=== PATIENT | male | born 1940 | race Caucasian/White ===

== ENCOUNTER 2019-05-06 16:24 | Observation (INO) ==
[2019-05-06] MEDS ORDERED: 0.9 % Sodium Chloride 1,000 ML ONE (18:53)
--- NOTE | 2019-05-06 19:03 | Urology History & Physical ---
Date of Encounter: 05/06/19 Time of Encounter: 19:01 Assessment and Plan (1) Ureteral stone with hydronephrosis Current Visit: Yes Status: Acute The patient has a 3 mm distal left ureteral calculi with hydronephrosis. He has been to the outside emergency room twice for intractable pain. He was transferred for surgical intervention. Patient is no longer interested in medically expulsive therapy. He has been scheduled for ureteroscopic stone extraction, retrograde pyelogram, ureteral stent placement tomorrow. We discussed the risks of the procedure which includes injury to his urinary tract, stricture, reaction to the contrast, stent discomfort. (2) Acute renal insufficiency Current Visit: Yes Status: Acute Likely from the obstructing stone. We will hydrate the patient. Recheck renal function in the morning History of Present Illness Chief complaint: left flank pain HPI: Mr. Lomeli is a 78 year old male with no significant medical history was transferred from [facility] secondary to a 3 mm distal ureteral stone. He went to [facility] emergency room twice for intractable pain. The second visit he was found to have acute renal insufficiency and elevated white cell count. He had subjective fevers. Patient states he feels well now. He has had nausea vomiting. No nausea currently. He denies chest pain or shortness of breath. No dysuria. No gross hematuria. He does not believe he passed the stone Review of Systems - Constitutional fever(s), no chills - EENT Nose, mouth and throat: no dizziness - Cardiovascular dyspnea (Not current), no chest pain - Respiratory no cough - Gastrointestinal abdominal pain, nausea - Genitourinary flank pain - Musculoskeletal back pain - Integumentary no erythema - Neurological no confusion - Psychiatric no anxiety - Hematologic/Lymphatic no easy bleeding - Allergic/Immunologic no throat swelling Exam - General physical appearance Present: no distress, no pain - Eyes Present: PERRL - ENT Present: normal nares, no congestion - Neck Present: no masses, no lymphadenopathy - Respiratory Present: normal respiratory effort - Cardiovascular Cardiovascular exam IM: RRR - Abdomen Abdomen: Present: soft. Absent: suprapubic tenderness - Integumentary Present: no rash, no growths, no abnormal pigmentation - Neurologic Present: normal coordination - Musculoskeletal Present: normal gait - Additional Findings No significant CVA tenderness at this time Urology Results - Labs All other labs normal.
[2019-05-06] MEDS ORDERED: Hyoscyamine SL 0.125 MG TAB.SUBL SL PRN (19:05)
[2019-05-06] MEDS ORDERED: *HR* Promethazine 25 MG/ML VIAL IVP PRN (19:05)
[2019-05-06] MEDS ORDERED: *HR* FentaNYL (PF) 100 MCG/2 ML VIAL IVP PRN (19:05)
[2019-05-06] MEDS ORDERED: Ondansetron 4 MG/2 ML VIAL IVP PRN (19:05)
[2019-05-06] MEDS ORDERED: Albuterol 2.5 MG/3 ML NEBULIZER IH PRN (19:05)
[2019-05-06] MEDS ORDERED: *HR* HYDROcodone/Acet 5/325 mg TABLET PO PRN (19:05)
[2019-05-06] MEDS ORDERED: Acetaminophen IV 1,000 MG/100 ML INFUS..BTL IVPB PRN (19:05)
[2019-05-06] MEDS ORDERED: Naloxone 0.4 MG/ML INJ IVP PRN (19:05)
[2019-05-06] MEDS ORDERED: Promethazine 25 MG in 0.9 % Sodium Chloride 50 ML IVPB PRN (19:14)
[2019-05-06] MEDS ORDERED: 0.9 % Sodium Chloride 1,000 ML IVC SCH (19:15)
[2019-05-07 02:52] LABS: Basophils % 0.3 %; Eosinophils % 0.3 %; Hematocrit 42.9 % (37.5-50.1); Hemoglobin 14.7 g/dL (12.9-16.9); Immature Granulocytes % 0.3 % (0-4); Lymphocytes # 2.1 K/mcL (0.6-4.6); Lymphocytes % 16.2 %; Mean Corpuscular HGB Conc 34.3 g/dL (31.6-35.5); Mean Corpuscular Hemoglobin 32.4 pg (28.0-33.3); Mean Corpuscular Volume 94.5 fL (83.0-100.0); Mean Platelet Volume 10.7 fL (9.4-12.4); Monocytes % 7.5 %; Neutrophils # 9.7 K/mcL (1.6-8.9); Platelet Count 292 K/mcL (140-400); Red Blood Count 4.54 M/mcL (4.19-5.50); Red Cell Distribution Width 12.3 % (11.5-14.5); Segmented Neutrophils % 75.4 %; White Blood Count 12.9 K/mcL (4.3-11.1)
[2019-05-07 03:09] LABS: Calcium 8.8 mg/dL (8.6-10.3); Potassium 3.8 mEq/L (3.5-5.1)
[2019-05-07] MEDS ORDERED: cefTRIAXone 1,000 MG in Water for inj. (sterile) 10 ML IVP SCH (07:00)
--- NOTE | 2019-05-07 08:10 | Urology Progress Note ---
Date of Encounter: 05/07/19 Time of Encounter: 08:09 - Assessment and Plan (1) Ureteral stone with hydronephrosis Current Visit: Yes Status: Acute Assessment and plan: proceed with stone extraction this AM. (2) Acute renal insufficiency Current Visit: Yes Status: Acute Progress Note Narrative: pt still has some pain this AM. has not passed the stone Objective Initial Vital Signs Temp Pulse Resp BP Pulse Ox 98.0 F 86 16 153/78 94 05/06/19 19:26 05/06/19 19:26 05/06/19 19:26 05/06/19 19:05/06/19 19:26 - General physical appearance Present: no distress - Abdomen Present: soft - Labs 05/07/19 02:18 05/07/19 02:18 Diabetes panel 05/07/19 Range/Units 02:18 Sodium 136 (136-145) mEq/L Potassium 3.8 (3.5-5.1) mEq/L Chloride 105 (98-107) mEq/L Carbon Dioxide 21 L (23-29) mEq/L BUN 26 H (8-23) mg/dL Creatinine 1.52 H (0.70-1.30) mg/dL Glucose 142 H (70-105) mg/dL Calcium 8.8 (8.6-10.3) mg/dL Calcium panel 05/07/19 Range/Units 02:18 Calcium 8.8 (8.6-10.3) mg/dL Pituitary panel 05/07/19 Range/Units 02:18 Sodium 136 (136-145) mEq/L Potassium 3.8 (3.5-5.1) mEq/L Chloride 105 (98-107) mEq/L Carbon Dioxide 21 L (23-29) mEq/L BUN 26 H (8-23) mg/dL Creatinine 1.52 H (0.70-1.30) mg/dL Glucose 142 H (70-105) mg/dL Calcium 8.8 (8.6-10.3) mg/dL Adrenal panel 05/07/19 Range/Units 02:18 Sodium 136 (136-145) mEq/L Potassium 3.8 (3.5-5.1) mEq/L Chloride 105 (98-107) mEq/L Carbon Dioxide 21 L (23-29) mEq/L BUN 26 H (8-23) mg/dL Creatinine 1.52 H (0.70-1.30) mg/dL Glucose 142 H (70-105) mg/dL Calcium 8.8 (8.6-10.3) mg/dL Consult Discharge Plan - Plan [facility] Care Provider[facility] -
--- NOTE | 2019-05-07 08:26 | Anesthesia Evaluation PreOp ---
Date of Encounter: 05/07/19 Time of Encounter: 08:24 - Past History Planned Operation: Left Ureteroscopic Stone Extraction Cardiac History: Denies any Significant Hx Pulmonary History: Former smoker (quit 15 years ago), Asthma VISITING NURSE History: Denies Any Significant HX Other Medical History: Renal (kidney stones) Anesthesia History: No Prior Anesthetic Complications, Past Anesthesia Alcohol Use: none Drug use: none Medications and Allergies Allergy/AdvReac Type Severity Reaction Status Date / Time No Known Allergies Allergy Verified 05/06/19 19:01 - Meds/Allergy Pre-op Review Medications Reviewed: Yes Allergies Reviewed: Yes Beta Blockers on Current Med List: No Anesthesia Results - Labs 05/07/19 02:18 05/07/19 02:18 - Imaging EKG: report reviewed (05/07/2019 sinus tachycardia) Anesthesia Exam Vital Signs/O2 Sat/Glucose, Most Recent Temp Pulse Resp BP Pulse Ox 98.5 F 96 17 161/82 94 05/07/19 07:14 05/07/19 07:14 05/07/19 07:14 05/07/19 07:14 05/07/19 07:14 Blood Glucose* 166 Height: 5'11''/1.8m Weight: 157 lbs/71.4 kg NPO (# of Hours): 8 Pain Scale: 3 (left flank) Pain Scale Used: Numeric (1 - 10) - HEENT Pupil (Motor): EOMI Mallampati: II Teeth: Edentulous Denture Type: Upper: Complete, Lower: Complete Oral Opening: Greater than 3 - VISITING NURSE LOC: Oriented VISITING NURSE Motor: Normal RUE, Normal LUE, Normal RLE, Normal LLE, Normal Face VISITING NURSE Sensory: Normal: RUE, LUE, RLE, LLE, Face - Cardiac Rhythm: Regular Murmur: None - Pulmonary Breath Sounds: bilateral Clear Respiratory Effort: Symmetrical Anesthesia Assess/Plan ASA Score: 2 Level of consciousness: Cooperative, Oriented, Tranquil Anesthetic Plan: General Monitoring Plan: Standard Monitors Recovery Plan: PACU
--- NOTE | 2019-05-07 09:16 | Operative Note ---
Date of procedure: 05/07/19 Pre-op diagnosis: Left distal ureteral stone Post-op diagnosis: same (incidental bladder stone noted. Approximately 1 cm) Procedure: Left ureteroscopic stone extraction Left ureteral stent placement Removal of 1 cm bladder stone Anesthesia: GETA Surgeon: Tomi Hill Was there an head start assistant teacher present: No Estimated blood loss (cc): 0 Specimen: Stone Condition: stable Disposition: PACU Procedure in Detail: PROCEDURE IN DETAIL: Patient was taken back to the operating room, positioned supine on the operating table. Anesthesia was applied without complication. They were moved into dorsal lithotomy. Careful attention was maintained to cushion all pressure points for patient's safety. They were prepped and draped in sterile fashion. Time-out was performed with the proper patient and procedure. A 21-Taiwanese rigid cystoscope was inserted into the bladder without difficulty. Systematic examination of bladder revealed mild trabeculations and a few cellules. I noted a bladder stone located within one of the cellules on the posterior right bladder wall. I was able to basket extract the stone with a 1.9 tip was basket. The stone was quite oblong and I was able to extract the stone lengthwise minimizing trauma to the urethra. The left ureteral orifice was cannulated using a 5-Taiwanese ureteral Catheter and I had return of significant debris filled stagnant urine. At that point, a zip wire was placed through the 5-Taiwanese and confirmed in the renal pelvis with fluoroscopy. An 8-10 dilator was then placed over the zip wire to passively dilate the ureteral orifice. A semi-rigid ureteroscope was carefully inserted into the bladder and guided into the ureteral oriface. The stone was encountered and I was able to basket extract the stone without performing laser lithotripsy A 4.8 x 26 ureteral stent was placed over the zip wire under fluoroscopy without complication. The bladder was drained and the dangle string was secured to the dorsal aspect of the penis.
--- NOTE | 2019-05-07 09:18 | Discharge Summary ---
Date of Encounter: 05/07/19 Time of Encounter: 09:18 - Discharge Diagnosis (1) Ureteral stone with hydronephrosis Priority: Primary Status: Resolved Comments: Status post stone extraction (2) Acute renal insufficiency Priority: Secondary Status: Acute - Hospital Course Hospital course: Mr. Lomeli is a 78 year old male patient status post ureteroscopic stone extraction and stent placement. Plan for discharge when symptoms are controlled. Will recheck renal function as an outpatient. Instructions provided for stent removal - Time Spent with Patient Total time spent providing and/or coordinating discharge services: Labs on day of discharge: Labs from last 24 hours 05/07/19 05/07/19 02:18 02:18 WBC 12.9 H RBC 4.54 Hgb 14.7 Hct 42.9 MCV 94.5 MCH 32.4 MCHC 34.3 RDW 12.3 Plt Count 292 MPV 10.7 Immature Gran % 0.3 Seg Neutrophils % 75.4 Lymphocytes % 16.2 Monocytes % 7.5 Eosinophils % 0.3 Basophils % 0.3 Neutrophils # 9.7 H Lymphocytes # 2.1 Monocytes # 1.0 Eosinophils # 0.0 Basophils # 0.0 Sodium 136 Potassium 3.8 Chloride 105 Carbon Dioxide 21 L BUN 26 H Creatinine 1.52 H Est GFR ( Amer) 54 L Est GFR (Non-Af Amer) 45 L BUN/Creatinine Ratio 17 Glucose 142 H Calculated Osmolality 289 Calcium 8.8 - Discharge Medications Prescriptions: New Sulfamethoxazole/Trimeth DS [Bactrim DS] 1 each PO BID #6 tablet Hyoscyamine SL [Levsin Sl] 0.125 mg SL Q4H PRN 7 Days #30 tab.subl PRN Reason: bladder spasms HYDROcodone/Acet 5/325 mg [[place] 5-325 mg] 1 tab PO Q4HR PRN 5 Days #15 tablet PRN Reason: Mild To Moderate Pain Home Medications: HYDROcodone/Acet 5/325 mg [[place] 5-325 mg] 1 tab PO Q4HR PRN 5 Days #15 tablet 05/07/19 [Rx] Hyoscyamine SL [Levsin Sl] 0.125 mg SL Q4H PRN 7 Days #30 tab.subl 05/07/19 [Rx] Sulfamethoxazole/Trimeth DS [Bactrim DS] 1 each PO BID #6 tablet 05/07/19 [Rx] Allergies/Adverse Reactions: Allergy/AdvReac Type Severity Reaction Status Date / Time No Known Allergies Allergy Verified 05/06/19 19:01 Date of admission: 05/06/19 18:26 [facility] care [facility] Discharging clinician: Tomi Hill Anticipated date of discharge: 05/07/19 Exam Initial Vital Signs Temp Pulse Resp BP Pulse Ox 98.0 F 86 16 153/78 94 05/06/19 19:26 05/06/19 19:26 05/06/19 19:26 05/06/19 19:26 05/06/19 19:26 - General physical appearance Present: well developed, no distress - Patient Status Disposition: Home, Self-Care Condition: Good Functional capacity at discharge: independent ambulation Overall status at discharge: patient is progressing back to baseline - Discharge Instructions Follow Up With: [facility],PCP [Primary Care Provider] - Tomi Hill MD [Partnered Physician] - (Patient is able to remove the stent at home on by pulling on the string until the entire stent is removed. Okay to come to the urology office Wednesday for removal if he is not comfortable removing at home. Otherwise my office will call him with follow-up appointment) Additional Instructions: No specific activity restrictions. Expect stent discomfort including urgency, frequency, burning on urination, light blood in the urine, flank pain during urination Okay to use [id number] AZO No NSAIDs Increase water intake Use stool softeners if prone to constipation - Diet and Activity Activity: increase activity as tolerated Diet: advance to your usual diet
[2019-05-07] MEDS ORDERED: *HR* Propofol 200 MG/20 ML VIAL IVP ONE (09:46)
[2019-05-07] MEDS ORDERED: Lidocaine -MPF 2% 2 ML VIAL ONE (09:48)
[2019-05-07] MEDS ORDERED: Dexamethasone 4 MG/ML VIAL ONE (09:48)
[2019-05-07] MEDS ORDERED: Ondansetron 4 MG/2 ML VIAL ONE (09:48)
[2019-05-07] MEDS ORDERED: EPHEDrine 50 MG/ML VIAL ONE (09:51)
[2019-05-07] MEDS ORDERED: *HR* FentaNYL (PF) 100 MCG/2 ML VIAL ONE (09:51)
[2019-05-07] MEDS ORDERED: Isovue-300 50 ML VIAL ONE (09:52)
[2019-05-07] MEDS ORDERED: Morphine Sulfate 2 MG/ML SYRINGE IVP PRN (10:47)
--- NOTE | 2019-05-07 11:24 | Anesthesia Evaluation Post Op ---
Date of Encounter: 05/07/19 Time of Encounter: 11:24 - Vital Signs Vital Signs: Vital Signs/O2 Sat, Most Current Temp Pulse Resp BP Pulse Ox 98.7 F 80 12 115/79 96 05/07/19 11:21 05/07/19 11:21 05/07/19 11:21 05/07/19 11:21 05/07/19 11:21 - Lungs Lungs: Clear Ascult./Percussion - Airway Airway: Non-obstructed - Cardiovascular Regular Rate - Mental Status Mental Status: Alert & Oriented, Answers Appropriately - Pain Pain Scale: 0 Pain Scale used: Numeric (1 - 10) - Nausea Vomiting Nausea Vomiting: Not Present - Hydration Hydration: Ice chips, Has not voided - Discharge PostOp Status: Transfer Patient to floor
[2019-05-07] MEDS ORDERED: *HR* FentaNYL (PF) 100 MCG/2 ML VIAL IVP PRN (11:53)
[2019-05-07] MEDS ORDERED: *HR* HYDROcodone/Acet 5/325 mg TABLET PO PRN (11:53)
[2019-05-07] MEDS ORDERED: Ondansetron 4 MG/2 ML VIAL IVP PRN (11:53)
[2019-05-07] MEDS ORDERED: Acetaminophen IV 1,000 MG/100 ML INFUS..BTL IVPB PRN (11:53)
[2019-05-07] MEDS ORDERED: 0.9 % Sodium Chloride 1,000 ML IVC SCH (11:53)
[2019-05-07] MEDS ORDERED: Albuterol 2.5 MG/3 ML NEBULIZER IH PRN (11:53)
[2019-05-07] MEDS ORDERED: Naloxone 0.4 MG/ML INJ IVP PRN (11:53)
[2019-05-07] MEDS ORDERED: Hyoscyamine SL 0.125 MG TAB.SUBL SL PRN (11:53)
[2019-05-07] MEDS ORDERED: Promethazine 25 MG in 0.9 % Sodium Chloride 50 ML IVPB PRN (11:53)
[2019-05-07 15:26] VITALS: BP 148/77
[2019-05-08] MEDS ORDERED: cefTRIAXone 1,000 MG in Water for inj. (sterile) 10 ML IVP SCH (09:00)
--- NOTE | 2019-05-09 16:08 | Electrocardiograph Report ---
[address] [address] Test Date: 2019-05-07 Pat Name: Boris Lomeli Department: 115 Room: 3A Gender: M Cps Team Lead: : 1940 Requested By: Tomi Hill Order Number: [id number] Reading MD: Gio Kumar Measurements Intervals [place] Rate: 100 P: 75 WV: 165 QRS: 54 QRSD: 102 T: 62 QT: 366 QTc: 423 Interpretive Statements SINUS TACHYCARDIA Electronically Signed On 05-09-2019 16:06:51 EDT by Gio Kumar
[2019-05-12 04:44] LABS: Calculi Mass 240 mg; Calculi Mass 7 mg
== END 2019-05-07 16:00 | disposition home or self-care (01) ==
LOC: 3ANU
PROVIDERS: ADMIT Urology; ATTEND Urology

== ENCOUNTER 2019-05-12 14:02 | Observation (INO) ==
[2019-05-12] MEDS ORDERED: Naloxone 0.4 MG/ML INJ IVP PRN (16:01)
[2019-05-12] MEDS ORDERED: Ondansetron 4 MG/2 ML VIAL IVP PRN (16:01)
--- NOTE | 2019-05-12 16:01 | Internal Med History&Physical ---
Date of Encounter: 05/12/19 Time of Encounter: 16:01 Internal Medicine - H&P: HPI History of present illness: Mr. Lomeli is a 78 year old male presents as a transfer from [facility] ED for left flank pain. He was recently discharged from [facility] after having an obstructive UVJ stone with ipsilateral hydronephrosis. Patient had a stent placed and several stones were retrieved. The next day, he started havin left flank pain again. He removed his uretheral stent yesterday as instructed. He was pr escribed Bactrim DS and hydrocodone. He had hematuria that has been gradually improving. Creatinine was 1.72, and baseline is reported to be 1.1. WBC elevated at 20k. Urinalysis showed trace ketones, large blood, trace leukocyte esterase. BP at [facility] was 164/81 with HR 92 bpm, and Tmax 99.[address] abdomen pelvis showed mild hydroureteronephrosis. Prior stones in recent images were no longer identified. It also showed prostatomegaly with calcification. A right adrenal nodule was noted that should be evaluated with an MRI. He was given a dose of 1 g Rocephin IV, 1 L normal saline and acetaminophen. Past Med Surg Social Fam HX - Past Medical History Psychiatric history: no psych history - Past Surgical History Additional surgical history: left wrist fracture with edward. left ankle fracture - Social History Smoking Status: Former smoker Smokeless Tobacco Status: No Alcohol use: none Drug use: none - Family History Father Living Status: Hx Family Cardiac Disorders: Yes Internal Medicine - H&P: Meds HYDROcodone/Acet 5/325 mg [[place] 5-325 mg] 1 tab PO Q4HR PRN 5 Days #15 tablet 05/07/19 [Rx] Hyoscyamine SL [Levsin Sl] 0.125 mg SL Q4H PRN 7 Days #30 tab.subl 05/07/19 [Rx] Sulfamethoxazole/Trimeth DS [Bactrim DS] 1 each PO BID #6 tablet 05/07/19 [Rx] Allergy/AdvReac Type Severity Reaction Status Date / Time No Known Allergies Allergy Verified 05/06/19 19:01 All Systems PM: A 10-system review of systems was performed and is negative for pertinent findings except as documented above in the HPI. - Constitutional Constitutional: fever(s), no chills, no night sweats - EENT Eyes: no change in vision, no discharge, no pain, no photophobia Ears: no ear discharge, no ear pain, no tinnitus Nose, mouth and throat: no dysphagia, no nasal discharge, no neck pain, no sore throat - Cardiovascular Cardiovascular ROS IM: no chest pain, no diaphoresis, no dyspnea, no lightheadedness, no palpitations, no syncope - Respiratory Respiratory: no cough, no dyspnea, no wheezing, no excessive phlegm production - Gastrointestinal Gastrointestinal: no abdominal pain, no diarrhea, no hematemesis, no hematochezia, no melena, no nausea, no vomiting - Genitourinary Genitourinary ROS male: flank pain - Musculoskeletal Musculoskeletal ROS IM: no numbness, no tingling - Integumentary Integumentary IM: no rash, no unusual bruising - Neurological Neurological ROS: no confusion, no convulsions, no focal weakness, no numbness, no tingling, no tremor(s) - Hematologic/Lymphatic Hematologic/Lymphatic: no easy bruising - Constitutional General appearance: Present: A&O X 3, no acute distress, answers questions appropriately Exam: . - Head Head exam: Present: atraumatic, normocephalic - Eye Eye exam: Present: PERRL, conjuntiva pink, sclera anicteric Pupils: Present: PERRL - Neck Neck exam general surgery: Present: supple, trachea midline. Absent: lymphadenopathy - Respiratory Respiratory exam: Present: CTAB. Absent: accessory muscle use, rales, rhonchi, wheezes - Cardiovascular Cardiovascular exam: Present: RRR, +S1, +S2. Absent: diastolic murmur, gallop, rubs, systolic murmur - GI/Abdominal GI/Abdominal exam: Present: normal bowel sounds, soft, no peritoneal signs. Absent: distended, tenderness - Extremities Exam Extremities exam: Present: warm, radial pulses palpable and symmetrical. Absent: calf tenderness, cyanotic, pedal edema - Neurological Exam Neurological exam: Present: CN II-XII intact, oriented X3, no focal deficits. Absent: pronater drift, facial droop, speech deficit - Skin Skin exam: Present: dry, intact Internal Med - H&P Results - Labs CBC & Chem 7: 05/12/19 16:35 - Assessment and Plan (1) Flank pain Current Visit: Yes Status: Acute Assessment and plan: No stones seen on CT abdomen/pelvis that were seen on prior CT scans. Currently patient is in no acute distress. Will continue symptomatic pain control with oxycodone sL and have Urology evaluate patient in the morning. (2) Acute renal insufficiency Current Visit: No Status: Acute Assessment and plan: Suspect this is due to urinary obstruction, but CT abdomen/pelvis at [facility] showed resolved UPJ stone that is no longer ledged in UPJ. Other etiology is from Bactrim that can transiently raise creatinine. Will hold Bactrim and start Rocephin. Give gentle IV fluid hydration and recheck BMP in AM. (3) Ureteral stone with hydronephrosis Current Visit: No Status: Resolved Assessment and plan: Prior stone was seen prior to stent placement recently. CT abdomen/pelvis today at [facility] showed no longer any stone. Urology consulted. (4) DVT prophylaxis Current Visit: Yes Status: Acute - Time Spent With Patient Total time spent is greater than 50% in coordination of care (as documented) at patient's floor/unit and/or counseling patient:
[2019-05-12] MEDS ORDERED: 0.9 % Sodium Chloride 1,000 ML IVC SCH (16:15)
[2019-05-12 17:27] LABS: Basophils % 0.2 %; Eosinophils % 0.1 %; Hematocrit 39.2 % (37.5-50.1); Hemoglobin 13.2 g/dL (12.9-16.9); Immature Granulocytes % 0.4 % (0-4); Lymphocytes # 1.4 K/mcL (0.6-4.6); Lymphocytes % 8.1 %; Mean Corpuscular HGB Conc 33.7 g/dL (31.6-35.5); Mean Corpuscular Hemoglobin 33.3 pg (28.0-33.3); Monocytes # 0.8 K/mcL (0.0-1.3); Monocytes % 4.5 %; Neutrophils # 14.6 K/mcL (1.6-8.9); Platelet Count 327 K/mcL (140-400); Red Blood Count 3.96 M/mcL (4.19-5.50); Red Cell Distribution Width 12.4 % (11.5-14.5); Segmented Neutrophils % 86.7 %; White Blood Count 16.8 K/mcL (4.3-11.1)
[2019-05-12 17:37] LABS: INR 1.1; Prothrombin Time 12.5 Seconds (9.4-12.1)
[2019-05-12 17:49] LABS: BUN/Creatinine Ratio 17 (6-26); Blood Urea Nitrogen 21 mg/dL (8-23); Calcium 9.1 mg/dL (8.6-10.3); Carbon Dioxide 24 mEq/L (23-29); Chloride 106 mEq/L (98-107); Glucose 120 mg/dL (70-105); Osmolality,Calculated 288 (280-300); Potassium 4.1 mEq/L (3.5-5.1); Sodium 137 mEq/L (136-145); eGFR For African Americans > 60 (> 60); eGFR For Non-African Americans 55 (> 60)
[2019-05-12] MEDS: *HR* Heparin 5,000 UNIT/ML VIAL SQ SCH (18:22)
[2019-05-13] MEDS: *HR* Heparin 5,000 UNIT/ML VIAL SQ SCH ×2 (05:35→17:46)
[2019-05-13 08:27] LABS: Basophils # 0.1 K/mcL (0.0-0.2); Basophils % 0.4 %; Eosinophils # 0.1 K/mcL (0.0-0.6); Eosinophils % 0.6 %; Hemoglobin 13.3 g/dL (12.9-16.9); Immature Granulocytes % 0.4 % (0-4); Lymphocytes # 2.6 K/mcL (0.6-4.6); Lymphocytes % 16.2 %; Mean Corpuscular HGB Conc 34.1 g/dL (31.6-35.5); Mean Corpuscular Hemoglobin 33.1 pg (28.0-33.3); Mean Platelet Volume 9.9 fL (9.4-12.4); Monocytes # 0.7 K/mcL (0.0-1.3); Monocytes % 4.4 %; Neutrophils # 12.3 K/mcL (1.6-8.9); Platelet Count 323 K/mcL (140-400); Red Blood Count 4.02 M/mcL (4.19-5.50); Red Cell Distribution Width 12.5 % (11.5-14.5); White Blood Count 15.8 K/mcL (4.3-11.1)
[2019-05-13 08:46] LABS: Calcium 9.1 mg/dL (8.6-10.3); Potassium 3.9 mEq/L (3.5-5.1)
[2019-05-13] MEDS: cefTRIAXone 1,000 MG in Water for inj. (sterile) 10 ML IVP SCH (08:47)
[2019-05-13] MEDS: 0.9 % Sodium Chloride 1,000 ML IVC SCH (12:46)
[2019-05-13 13:05] LABS: Bilirubin,Urine Negative (Negative); Blood,Urine Large (Negative); Clarity,Urine Clear (Clear); Color,Urine Yellow (Yellow); Glucose,Urine (UA) Normal (Normal); Ketones,Urine Trace mg/dL (Negative); Leukocyte Esterase,Urine Small (Negative); Nitrite,Urine Negative (Negative); Protein,Urine Trace mg/dL (Neg-Trace); Specific Gravity,Urine 1.016 (1.010-1.025); Urobilinogen,Urine Normal (Normal)
[2019-05-13 13:08] LABS: Bacteria,Urine None Seen per hpf (None-Few); Hyaline Casts,Urine None Seen per lpf (None-Few); RBC,Urine 50-100 per hpf (0-3); Squamous Epithelial Cell,Urine Few per lpf (None-Few); WBC,Urine 15-30 per hpf (0-3)
--- NOTE | 2019-05-13 16:35 | Internal Med Progress Note ---
Hospitalist Progress Note - Encounter Date of Encounter: 05/13/19 Time of Encounter: 09:15 - Subjective Interval History: Mr Lomeli stated his flank pain is tolerable. He did admit to having episodes of chills and being diaphoretic prior to presenting. GEN: admits to fever, chills or malaise HEENT: Denies headache blurriness, or dysphagia RESP: Denies SOB or cough CV: Denies chest pain or palpitations GI: Denies Nausea, vomiting, diarrhea or constipation Reviewed current in hospital medications with modifications see orders Reviewed Routine labs - Exam Vitals: Temp Pulse Resp BP Pulse Ox 98.7 F 80 15 137/75 98 05/13/19 15:44 05/13/19 15:44 05/13/19 15:44 05/13/19 15:44 05/13/19 15:44 Exam: GEN: NAD, A&O x 3, Pleasant and conversant SKIN: [place] warm acyanotic not jaundice HEART: RRR, no murmurs LUNGS: CTA no wheeze or crackles, overall non labored ABDOMEN; Soft, non tender or distended, BS x 4 normactive, NO CVA tenderness EXT: No LE edema, Pedal pulses 1+, radial pulses 2+ PSYCH: Mood and affect is appropriate - Assessment and Plan (1) Sepsis Current Visit: Yes Status: Acute Assessment and Plan: Sepsis with initial presentation based on SIRS plus presumed urinary tract infection. Clinically patient does not appear to be acutely ill or septic. on empiric antibiotics with ceftriaxone, he is afebrile. Although his initial UA does not suggest UTI as such there is no culture, was WBC normalized we will de- escalate antimicrobial therapy (2) Ureteral stone with hydronephrosis Current Visit: Yes Status: Resolved Assessment and Plan: Prior stone was seen prior to stent placement recently. CT abdomen/pelvis today at [facility] showed no longer any stone. Urology consulted, appreciate the input. Patient presently denies any flank tenderness or pain, creatinine trended up slightly, urine output has been oligouric at best (3) Acute renal insufficiency Current Visit: Yes Status: Acute Assessment and Plan: Creatinine trended up to 1.39 almost meeting criteria for MOY, given his oliguria. Baseline EF is not known. will start gentle hydration at 75/hr Suspect this is due to urinary obstruction, but CT abdomen/pelvis at [facility] showed resolved UPJ stone that is no longer ledged in UPJ. Other etiology is from Bactrim that can transiently raise creatinine. Will hold Bactrim and start Rocephin. Give gentle IV fluid hydration and recheck BMP in AM. (4) Flank pain Current Visit: Yes Status: Acute Assessment and Plan: No stones seen on CT abdomen/pelvis that were seen on prior CT scans. Currently patient is in no acute distress. continue symptomatic pain control with oxycodone sL to which patient attributes his current pain-free (5) DVT prophylaxis Current Visit: Yes Status: Acute Assessment and Plan: SCDs pending urology evaluation - Time Spent with Patient Total time spent is greater than 50% in coordination of care (as documented) at patient's floor/unit and/or counseling patient: Internal Medicine: Result - Labs CBC & Chem 7: 05/13/19 08:00 05/13/19 08:00 Labs: Short CBC 05/12/19 05/13/19 Range/Units 16:35 08:00 WBC 16.8 H 15.8 H (4.3-11.1) K/mcL Hgb 13.2 D 13.3 (12.9-16.9) g/dL Hct 39.2 39.0 (37.5-50.1) % Plt Count 327 323 (140-400) K/mcL Neutrophils # 14.6 H 12.3 H (1.6-8.9) K/mcL BMP 05/12/19 05/13/19 16:35 08:00 Sodium 137 139 Potassium 4.1 3.9 Chloride 106 105 Carbon Dioxide 24 20 L BUN 21 21 Creatinine 1.27 1.39 H Glucose 120 H 108 H Calcium 9.1 9.1 Urine 05/13/19 Range/Units 12:30 Urine Color Yellow (Yellow) Urine Clarity Clear (Clear) Urine pH 6.0 (5.0-8.0) pH Units Ur Specific [place] 1.016 (1.010-1.025) Urine Protein Trace (Neg-Trace) mg/dL Urine Glucose (UA) Normal (Normal) mg/dL - ABG Interpretation ABG results: PT/INR, D-dimer PT 12.5 Seconds (9.4-12.1) H 05/12/19 16:35 Consult Discharge Plan - Plan Referrals: [facility] [Outside] (1) Sepsis Qualifiers: Sepsis type: Streptococcus, unspecified Sepsis acute organ dysfunction sta tus: with acute organ dysfunction Severe sepsis acute organ dysfunction type: acute renal failure Acute renal failure type: unspecified Severe sepsis shock status: without septic shock Qualified Code(s): A40.9 - Streptococcal sepsis, unspecified; R65.20 - Severe sepsis without septic shock; N17.9 - Acute kidney failure, unspecified
--- NOTE | 2019-05-13 16:54 | Urology Progress Note ---
Date of Encounter: 05/13/19 Time of Encounter: 16:51 - Assessment and Plan (1) Hydronephrosis Current Visit: Yes Status: Acute Assessment and plan: Mild to moderate left [place]. I suspect this is secondary to partial obstruction from persistent ureteral edema following left ureteroscopy basket extraction of stone on 05/07/2019. The patient removed his left ureteral stent as instructed on of this week. Pain started shortly after stent removal. Patient's pain is improving with time alone consistent with resolving left ureteral edema. Plan: No indications for urologic interventions. Anticipate spontaneous resol ution of hydronephrosis and pain with normal healing. Qualifiers: Hydronephrosis type: other Qualified Code(s): N13.39 - Other hydronephrosis (2) Flank pain Current Visit: Yes Status: Acute Assessment and plan: Secondary to increased left hydronephrosis following stent removal on of this week. Patient had ureteroscopy with basket extraction of left ureteral calculus on the 05/07/2019. Delayed healing with persistent ureteral edema responsible for increase in flank pain post stent removal. Patient is not infected. Pain is improving spontaneously. Plan: Observation without further urologic interventions. Symptomatically management of pain with meds. Progress Note Subjective: feels better Objective Initial Vital Signs Temp Pulse Resp BP Pulse Ox 98.0 F 94 15 189/80 97 05/12/19 19:47 05/12/19 19:47 05/12/19 19:47 05/12/19 19:47 05/12/19 19:47 - General physical appearance Present: no distress - Respiratory Present: normal respiratory effort - Abdomen Present: non tender - Integumentary Present: no rash, no growths - Musculoskeletal Present: normal posture - Psychiatric Present: oriented to time, oriented to person, oriented to place - Labs 05/13/19 08:00 05/13/19 08:00 Diabetes panel 05/12/19 05/13/19 Range/Units 16:35 08:00 Sodium 137 139 (136-145) mEq/L Potassium 4.1 3.9 (3.5-5.1) mEq/L Chloride 106 105 (98-107) mEq/L Carbon Dioxide 24 20 L (23-29) mEq/L BUN 21 21 (8-23) mg/dL Creatinine 1.27 1.39 H (0.70-1.30) mg/dL Glucose 120 H 108 H (70-105) mg/dL Calcium 9.1 9.1 (8.6-10.3) mg/dL Calcium panel 05/12/19 05/13/19 Range/Units 16:35 08:00 Calcium 9.1 9.1 (8.6-10.3) mg/dL Pituitary panel 05/12/19 05/13/19 Range/Units 16:35 08:00 Sodium 137 139 (136-145) mEq/L Potassium 4.1 3.9 (3.5-5.1) mEq/L Chloride 106 105 (98-107) mEq/L Carbon Dioxide 24 20 L (23-29) mEq/L BUN 21 21 (8-23) mg/dL Creatinine 1.27 1.39 H (0.70-1.30) mg/dL Glucose 120 H 108 H (70-105) mg/dL Calcium 9.1 9.1 (8.6-10.3) mg/dL Adrenal panel 05/12/19 05/13/19 Range/Units 16:35 08:00 Sodium 137 139 (136-145) mEq/L Potassium 4.1 3.9 (3.5-5.1) mEq/L Chloride 106 105 (98-107) mEq/L Carbon Dioxide 24 20 L (23-29) mEq/L BUN 21 21 (8-23) mg/dL Creatinine 1.27 1.39 H (0.70-1.30) mg/dL Glucose 120 H 108 H (70-105) mg/dL Calcium 9.1 9.1 (8.6-10.3) mg/dL - Imaging CT scan - abdomen: image reviewed CT scan - pelvis: image reviewed Consult Discharge Plan - Plan Referrals: [facility] [Outside]
[2019-05-14] MEDS: 0.9 % Sodium Chloride 1,000 ML IVC SCH (01:52)
[2019-05-14] MEDS: *HR* Heparin 5,000 UNIT/ML VIAL SQ SCH (06:17)
[2019-05-14 09:04] VITALS: BP 146/79
[2019-05-14] MEDS: cefTRIAXone 1,000 MG in Water for inj. (sterile) 10 ML IVP SCH (09:09)
[2019-05-14 10:00] LABS: Basophils % 0.3 %; Eosinophils # 0.1 K/mcL (0.0-0.6); Eosinophils % 0.7 %; Hematocrit 41.6 % (37.5-50.1); Hemoglobin 13.8 g/dL (12.9-16.9); Immature Granulocytes % 0.6 % (0-4); Lymphocytes # 2.2 K/mcL (0.6-4.6); Lymphocytes % 15.5 %; Mean Corpuscular HGB Conc 33.2 g/dL (31.6-35.5); Mean Corpuscular Hemoglobin 33.2 pg (28.0-33.3); Mean Platelet Volume 9.8 fL (9.4-12.4); Monocytes # 0.7 K/mcL (0.0-1.3); Neutrophils # 10.8 K/mcL (1.6-8.9); Platelet Count 347 K/mcL (140-400); Red Blood Count 4.16 M/mcL (4.19-5.50); Red Cell Distribution Width 12.4 % (11.5-14.5); Segmented Neutrophils % 77.9 %; White Blood Count 13.8 K/mcL (4.3-11.1)
[2019-05-14 10:20] LABS: BUN/Creatinine Ratio 17 (6-26); Blood Urea Nitrogen 18 mg/dL (8-23); Calcium 9.1 mg/dL (8.6-10.3); Carbon Dioxide 22 mEq/L (23-29); Chloride 104 mEq/L (98-107); Glucose 134 mg/dL (70-105); Magnesium 1.7 mg/dL (1.6-2.6); Osmolality,Calculated 292 (280-300); Potassium 3.7 mEq/L (3.5-5.1); Sodium 139 mEq/L (136-145); eGFR For African Americans > 60 (> 60); eGFR For Non-African Americans > 60 (> 60)
--- NOTE | 2019-05-14 11:39 | Discharge Summary ---
- NOTES TO OUTPATIENT PROVIDER Notes to Outpatient Provider: Posthospital discharge for left flank pain, status post recent hospitalization for nephrolithiasis. Work up this time included CT abdomen and pelvis that revealed a right adrenal nodule that will need outpatient workup. Also repeat CBC in 1 week Date of Encounter: 05/14/19 Time of Encounter: 11:36 - Discharge Diagnosis (1) Sepsis Priority: Primary Status: Acute Assessment and Plan: Sepsis with initial presentation based on SIRS plus presumed urinary tract infection. Clinically patient does not appear to be acutely ill or septic. on empiric antibiotics with ceftriaxone, he is afebrile. Although his initial UA does not suggest UTI as such there is no culture, wbc trim down from 15.8-13.8, he remains afebrile requesting discharge. Again patient does not appear to be ill will discharge home on oral ciprofloxacin for 5 days and recheck CBC in 1 week Qualifiers: Sepsis type: sepsis due to unspecified organism Sepsis acute organ dysfunction status: with acute organ dysfunction Severe sepsis acute organ dysfunction type: acute renal failure Acute renal failure type: unspecified Severe sepsis shock status: without septic shock Qualified Code(s): A41.9 - Sepsis, unspecified organism; R65.20 - Severe sepsis without septic shock; N17.9 - Acute kidney failure, unspecified (2) Ureteral stone with hydronephrosis Priority: Primary Status: Resolved Assessment and Plan: Prior stone was seen prior to stent placement recently. CT abdomen/pelvis today at [facility] showed no longer any stone. Urology consulted, appreciate the input recommended no further intervention. Patient presently denies any flank tenderness or pain, creatinine trended up slightly, urine output has been oligouric at best but improved with IV hydration 1.5 L out in the past 24 hours which is adequate we will discharge him and encourage to continue oral intake. Serum creatinine is 1.07 at discharge much improved from yesterday 1.39 (3) Acute renal insufficiency Priority: Secondary Status: Acute Assessment and Plan: Creatinine trended up to 1.39 almost meeting criteria for MOY, given his oliguria. Baseline EF is not known. will start gentle hydration at 75/hr, ser um creatinine at discharge 1.07 resolved Suspect this is due to urinary obstruction, but CT abdomen/pelvis at [facility] showed resolved UPJ stone that is no longer ledged in UPJ. Other etiology is from Bactrim that can transiently raise creatinine. Will hold Bactrim and start Rocephin. Give gentle IV fluid hydration and recheck BMP in AM. (4) Flank pain Priority: Secondary Status: Acute Assessment and Plan: No stones seen on CT abdomen/pelvis that were seen on prior CT scans. Currently patient is in no acute distress. continue symptomatic pain control with oxycodone sL to which patient attributes his current pain-free (5) DVT prophylaxis Priority: Secondary Status: Acute Assessment and Plan: SCDs will discharge today (6) Adrenal nodule Priority: Secondary Status: Acute Assessment and Plan: Incidental finding on CT imaging may require outpatient follow-up Hospital course: Mr. Lomeli is a 78 year old male hospitalized for left flank pain status post recent urological intervention for nephrolithiasis. he has remained pain-free during his hospitalization, due to SIRS criteria he was resumed septic however clinically he never appeared acutely ill after his pain was controlled. He was having oliguria with initial presentation of acute renal insufficiency but improved with IV hydration. He is requesting discharge he was seen by urology who recommends no further intervention Discharge discussed with: patient, nurse - Time Spent with Patient Total time spent providing and/or coordinating discharge services: 36 mins Specific discharge activities: Please make sure you will keep all follow-up appointments-PCP and urologist - Discharge Medications Prescriptions: Continued Hyoscyamine SL [Levsin Sl] 0.125 mg SL Q4H PRN 7 Days #30 tab.subl PRN Reason: bladder spasms HYDROcodone/Acet 5/325 mg [Kane 5-325 mg] 1 tab PO Q4HR PRN 5 Days #15 tablet PRN Reason: Mild To Moderate Pain Multivit-Min/FA/Lycopen/Lutein [Centrum Silver Tablet] 1 tab PO DAILY Discontinued Ondansetron ODT [Zofran ODT] 4 mg PO Q8H PRN PRN Reason: Nausea Home Medications: HYDROcodone/Acet 5/325 mg [Kane 5-325 mg] 1 tab PO Q4HR PRN 5 Days #15 tablet 05/07/19 [Rx] Hyoscyamine SL [Levsin Sl] 0.125 mg SL Q4H PRN 7 Days #30 tab.subl 05/07/19 [Rx] Multivit-Min/FA/Lycopen/Lutein [Centrum Silver Tablet] 1 tab PO DAILY 05/13/19 [History] Allergies/Adverse Reactions: Allergy/AdvReac Type Severity Reaction Status Date / Time No Known Allergies Allergy Verified 05/13/19 15:33 Date of admission: 05/12/19 15:42 Primary care physician: PCP SIMI Consults: 05/12/19 16:06 Consult to Urology [CONS] Routine Consulting Provider: Urology [facility] Reason for Consult: nephrolithiasis Call Completed: Yes Discharging clinician: Mahesh Deleon Anticipated date of discharge: 05/14/19 - Constitutional Vitals: Temp Pulse Resp BP Pulse Ox 97.5 F L 96 20 146/79 97 05/14/19 09:03 05/14/19 09:03 05/14/19 09:03 05/14/19 09:03 05/14/19 09:03 General appearance: Present: A&O X 3, no acute distress, answers questions appropriately Exam: GEN: NAD, A&O x 3, Pleasant and conversant SKIN: [place] warm acyanotic not jaundice HEART: RRR, no murmurs LUNGS: CTA no wheeze or crackles, overall non labored ABDOMEN; Soft, non tender or distended, BS x 4 normactive EXT: No LE edema, Pedal pulses 1+, radial pulses 2+ PSYCH: Mood and affect is appropriate - Patient Status Disposition: Home, Self-Care Condition: Good Functional capacity at discharge: independent ambulation Overall status at discharge: patient is back to baseline - Discharge Instructions Instructions: Sepsis (DC) Follow Up With: [facility] [Outside] - Diet and Activity Activity: resume usual activities as tolerated Diet: low fat, low cholesterol, low salt diet, other (please make sure you drink 6-8 glasses of water daily for the next 3 days)
--- NOTE | 2019-05-14 12:36 | Urology Progress Note ---
Date of Encounter: 05/14/19 Time of Encounter: 12:34 - Assessment and Plan (1) Hydronephrosis Current Visit: Yes Status: Acute Assessment and plan: Flare of pain post stent removal on of this past week. Patient for pain control. Pain-free this morning. White count steadily decreasing. Patient afebrile. Plan: Okay for discharge home from urology standpoint. Outpatient follow-up with my partner, Dr. Hill as scheduled. Qualifiers: Hydronephrosis type: other Qualified Code(s): N13.39 - Other hydronephrosis (2) Flank pain Current Visit: Yes Status: Acute Assessment and plan: Resolved. Progress Note Subjective: feels better Objective Initial Vital Signs Temp Pulse Resp BP Pulse Ox 98.0 F 94 15 189/80 97 05/12/19 19:47 05/12/19 19:47 05/12/19 19:47 05/12/19 19:47 05/12/19 19:47 - General physical appearance Present: no distress, no pain - Respiratory Present: normal respiratory effort - Abdomen Present: soft, non tender - Musculoskeletal Present: normal posture - Psychiatric Present: oriented to time, oriented to person, oriented to place - Labs 05/14/19 09:40 05/14/19 09:40 Diabetes panel 05/14/19 Range/Units 09:40 Sodium 139 (136-145) mEq/L Potassium 3.7 (3.5-5.1) mEq/L Chloride 104 (98-107) mEq/L Carbon Dioxide 22 L (23-29) mEq/L BUN 18 (8-23) mg/dL Creatinine 1.07 (0.70-1.30) mg/dL Glucose 134 H (70-105) mg/dL Calcium 9.1 (8.6-10.3) mg/dL Calcium panel 05/14/19 Range/Units 09:40 Calcium 9.1 (8.6-10.3) mg/dL Pituitary panel 05/14/19 Range/Units 09:40 Sodium 139 (136-145) mEq/L Potassium 3.7 (3.5-5.1) mEq/L Chloride 104 (98-107) mEq/L Carbon Dioxide 22 L (23-29) mEq/L BUN 18 (8-23) mg/dL Creatinine 1.07 (0.70-1.30) mg/dL Glucose 134 H (70-105) mg/dL Calcium 9.1 (8.6-10.3) mg/dL Adrenal panel 05/14/19 Range/Units 09:40 Sodium 139 (136-145) mEq/L Potassium 3.7 (3.5-5.1) mEq/L Chloride 104 (98-107) mEq/L Carbon Dioxide 22 L (23-29) mEq/L BUN 18 (8-23) mg/dL Creatinine 1.07 (0.70-1.30) mg/dL Glucose 134 H (70-105) mg/dL Calcium 9.1 (8.6-10.3) mg/dL Consult Discharge Plan - Plan Instructions: Sepsis (DC) Referrals: [facility] [Outside]
== END 2019-05-14 16:11 | disposition home or self-care (01) ==
LOC: 3ANU → SUATTDRO 15:42
PROVIDERS: ADMIT Student in an Organized Health Care Education/Training Program; ATTEND Pharmacist